=== PATIENT | female | born 1940 | race Caucasian/White ===

== ENCOUNTER 2023-01-27 08:43 | Day surgery (SDC) | payer SELFPAY ==
[2023-01-20 12:46] VITALS: BMI 21.4
[2023-01-27] MEDS: cloNIDine HCL 0.1 MG TABLET PO ONE ×2 (09:22→18:03)
[2023-01-27] MEDS ORDERED: EPINEPHrine/PF 1 MG/1 ML (1:1,000) AMPULE ONE (10:20)
[2023-01-27] MEDS ORDERED: LIDOCAINE 1%-EPI 1:100,000 30 ML MDV IJ ONE (10:20)
[2023-01-27] MEDS ORDERED: BACITRACIN ZINC 15 GM TUBE TOPICAL OINTMENT ONE (10:27)
[2023-01-27] MEDS ORDERED: TRANEXAMIC ACID 1000 MG/10 ML VIAL ONE (10:46)
[2023-01-27] MEDS ORDERED: ePHEDrine SULFATE 50 MG/1 ML AMPULE ONE ×2 (12:26→14:16)
[2023-01-27] MEDS ORDERED: ONDANSETRON 4 MG/2 ML VIAL ONE (13:35)
[2023-01-27] MEDS ORDERED: DEXAMETHASONE SOD PHOSPHATE 4 MG/1 ML VIAL ONE (13:35)
[2023-01-27] MEDS ORDERED: SODIUM CHLORIDE 0.9% P/F 10 ML VIAL IJ ONE (15:12)
[2023-01-27] MEDS ORDERED: ceFAZolin SODIUM 1 GM VIAL ONE (15:12)
[2023-01-27] MEDS ORDERED: ACETAMINOPHEN INJECTION 100 ML IVPB ONE (15:16)
[2023-01-27] MEDS ORDERED: PROPOFOL 20 ML ONE (15:22)
[2023-01-27] MEDS ORDERED: NITROGLYCERIN 2% OINTMENT - 1GM PACKET TD ONE ×2 (15:39→15:41)
[2023-01-27] MEDS ORDERED: PROMETHAZINE HCL 25 MG/1 ML VIAL IVPB PRN (16:04)
[2023-01-27] MEDS ORDERED: ONDANSETRON 4 MG/2 ML VIAL IVPUSH PRN (16:04)
[2023-01-27] MEDS ORDERED: LACTATED RINGERS SOLUTION 1,000 ML IV SCH ×2 (16:15→16:45)
[2023-01-27] MEDS ORDERED: ONDANSETRON 4 MG/2 ML VIAL IVPB PRN (16:31)
[2023-01-27] MEDS ORDERED: ACETAMINOPHEN 1000 MG/100 ML BAG IVPB PRN (16:31)
[2023-01-27] MEDS ORDERED: oxyCODONE HCL 5 MG TABLET PO PRN (16:31)
[2023-01-27] MEDS: CEFAZOLIN 1 GM in DEXTROSE 5%-WATER - 50 ML IVPB SCH (22:21)
[2023-01-27] MEDS: oxyCODONE HCL 5 MG TABLET PO PRN (22:30)
[2023-01-27 23:52] VITALS: RESP 17
[2023-01-28] MEDS: oxyCODONE HCL 5 MG TABLET PO PRN (02:01)
[2023-01-28 06:21] VITALS: PULSE 77
[2023-01-28] MEDS: CEFAZOLIN 1 GM in DEXTROSE 5%-WATER - 50 ML IVPB SCH (06:46)
[2023-01-28 08:57] VITALS: BP 109/52; TEMP 98.8
[2023-01-28] MEDS ORDERED: amLODIPine BESYLATE 5 MG TABLET (FP) PO SCH (10:00)
== END 2023-01-28 10:07 | disposition home or self-care (01) ==
LOC: FASUSAT 08:43 → FASU 08:43 → FM/S 17:34 → FASUSAT 01-28 10:07
PROVIDERS: ATTEND Plastic Surgery
PROC: 0W020ZZ Alteration of Face, Open Approach (ICD-10-PCS; principal; 2023-01-27 11:31)
PROC: 090 Ear, Nose, Sinus, Alteration (ICD-10-PCS; 2023-01-27 11:31)
DX: L98.8 Other specified disorders of the skin and subcutaneous tissue (principal)
CPT/HCPCS: 94760